=== PATIENT | male | born 1975 | race Caucasian/White ===

== ENCOUNTER 2020-11-03 11:37 | Observation (INO) | payer BC ==
[2020-11-03 12:19] LABS: #Eosinphils 0.5 thou/uL (0.0-0.7); #Lymphocytes 0.5 thou/uL (1.20-3.40); #Monocytes 1.3 thou/uL (0.11-0.59); #Neutrophils 9.2 thou/uL (1.40-6.50); %Basophils 0.4 % (0.0-1.0); %Eosinophils 4.5 % (0.0-10.0); %Lymphocytes 4.6 % (21.0-51.0); %Neutrophils 79.5 % (42.0-75.0); Hemoglobin 10.6 g/dL (14.0-18.0); Mean Corpuscular HGB CONC 33.4 g/dL (32.0-36.0); Mean Corpuscular Hemoglobin 31.6 pg (27.0-31.0); Mean Corpuscular Volume 94.6 fL (78.0-98.0); Mean Platelet Volume 7.8 fL (7.4-10.4); Platelet Count 230 thou/uL (130-400); RBC Distribution Width 14.4 % (11.5-14.5); Red Blood Cell (RBC) Count 3.35 mill/uL (4.70-6.10); White Blood Cell (WBC) Count 11.6 thou/uL (4.8-10.8)
[2020-11-03 12:40] LABS: ALT (SGPT) 7 U/L (8-55); AST (SGOT) 6 U/L (5-34); Albumin 4.2 g/dL (3.5-5.0); Alkaline Phosphatase 92 U/L (40-110); Anion Gap 18 mmol/L (10-20); BUN (Urea Nitrogen) 22 mg/dL (8.9-20.6); Bilirubin, Total 0.5 mg/dL (0.2-1.2); CK (CPK) 75 U/L (30-200); Calc. Creatinine Clearance 0 mL/min (70-130); Calcium 8.6 mg/dL (7.8-10.44); Carbon Dioxide 30 mmol/L (22-29); Chloride 96 mmol/L (98-107); Globulin 2.8 g/dL (2.4-3.5); Glucose 123 mg/dL (70-105); Potassium 4.4 mmol/L (3.5-5.1); Sodium 140 mmol/L (136-145)
[2020-11-03 12:52] LABS: PTT 33.1 sec (22.9-36.1); Prothrombin Time 13.4 sec (12.0-14.7)
[2020-11-03] MEDS ORDERED: Dextrose 5% in Water 1,000 ML IV PRN (15:33)
[2020-11-03] MEDS ORDERED: Ondansetron PF 4 MG/2 ML Vial IVP PRN (15:33)
[2020-11-03] MEDS ORDERED: Ondansetron ODT 4 MG TAB PO PRN (15:33)
[2020-11-03] MEDS ORDERED: Dextrose 50% Abboject 50 ML SYRINGE SLOW IVP PRN (15:33)
[2020-11-03] MEDS ORDERED: Bisacodyl 5 MG TAB PO PRN (15:33)
[2020-11-03] MEDS ORDERED: Calcium Carbonate 500 MG ChewTAB PO PRN (15:33)
[2020-11-03 17:33] VITALS: BMI 30.8
[2020-11-03] MEDS ORDERED: HumaLOG 300 UNITS/3 ML VIAL SC PRN (18:18)
[2020-11-04 04:46] LABS: #Eosinphils 0.5 thou/uL (0.0-0.7); #Lymphocytes 0.8 thou/uL (1.20-3.40); #Neutrophils 5.8 thou/uL (1.40-6.50); %Basophils 0.4 % (0.0-1.0); %Eosinophils 6.1 % (0.0-10.0); %Lymphocytes 9.8 % (21.0-51.0); %Monocytes 12.5 % (0.0-10.0); %Neutrophils 71.2 % (42.0-75.0); Hemoglobin 9.9 g/dL (14.0-18.0); Mean Corpuscular HGB CONC 32.7 g/dL (32.0-36.0); Mean Corpuscular Hemoglobin 31.1 pg (27.0-31.0); Mean Corpuscular Volume 95.3 fL (78.0-98.0); Mean Platelet Volume 7.8 fL (7.4-10.4); Platelet Count 221 thou/uL (130-400); RBC Distribution Width 14.7 % (11.5-14.5); Red Blood Cell (RBC) Count 3.16 mill/uL (4.70-6.10); White Blood Cell (WBC) Count 8.2 thou/uL (4.8-10.8)
[2020-11-04 05:07] LABS: ALT (SGPT) Less than 7 U/L (8-55); AST (SGOT) 5 U/L (5-34); Albumin 3.7 g/dL (3.5-5.0); Alkaline Phosphatase 84 U/L (40-110); Anion Gap 19 mmol/L (10-20); BUN (Urea Nitrogen) 29 mg/dL (8.9-20.6); Bilirubin, Total 0.4 mg/dL (0.2-1.2); Calc. Creatinine Clearance 14 mL/min (70-130); Calcium 8.4 mg/dL (7.8-10.44); Carbon Dioxide 27 mmol/L (22-29); Chloride 94 mmol/L (98-107); Globulin 2.8 g/dL (2.4-3.5); Glucose 222 mg/dL (70-105); Potassium 4.7 mmol/L (3.5-5.1); Protein, Total 6.5 g/dL (6.0-8.3); Sodium 135 mmol/L (136-145)
[2020-11-04] MEDS: HumaLOG 300 UNITS/3 ML VIAL SC PRN ×2 (05:52→11:02)
[2020-11-04] MEDS ORDERED: Carvedilol 25 MG TAB PO SCH (08:00)
[2020-11-04] MEDS ORDERED: Ascorbic Acid 500 mg Chewable Tablet PO SCH (09:00)
[2020-11-04] MEDS ORDERED: NIFEdipine XL 60 MG TAB PO SCH (09:00)
[2020-11-04] MEDS ORDERED: Famotidine 20 MG TAB PO SCH (09:00)
[2020-11-04] MEDS ORDERED: Zinc Sulfate 220 MG CAP PO SCH (09:00)
[2020-11-04] MEDS ORDERED: hydrALAZINE 25 MG TAB PO SCH (09:00)
[2020-11-04] MEDS: Sevelamer Carbonate 800 MG TAB PO SCH ×2 (11:03→12:32)
[2020-11-04 11:45] VITALS: TEMP 98.2
[2020-11-04 12:37] VITALS: BP 152/98
[2020-11-04] MEDS ORDERED: Atorvastatin Calcium 40 MG TAB PO SCH (21:00)
[2020-11-04] MEDS ORDERED: Lantus 1000 UNITS/10 ML VIAL SC SCH (21:00)
[2020-11-05] MEDS ORDERED: levETIRAcetam 500 MG TAB PO SCH (12:00)
== END 2020-11-04 13:59 | disposition home or self-care (01) ==
LOC: ERS 11:37 → 2SE 14:49
PROVIDERS: ADMIT Family Medicine; ATTEND Family Medicine
DX: I62.01 Nontraumatic acute subdural hemorrhage (principal); I62.03 Nontraumatic chronic subdural hemorrhage; G93.5 Compression of brain; G93.89 Other specified disorders of brain; I12.0 Hypertensive chronic kidney disease with stage 5 chronic kidney disease or end stage renal disease; E10.22 Type 1 diabetes mellitus with diabetic chronic kidney disease; N18.6 End stage renal disease; E10.21 Type 1 diabetes mellitus with diabetic nephropathy; E78.5 Hyperlipidemia, unspecified; Z99.2 Dependence on renal dialysis; Z95.1 Presence of aortocoronary bypass graft; Z79.899 Other long term (current) drug therapy; Z88.8 Allergy status to other drugs, medicaments and biological substances; Z91.048 Other nonmedicinal substance allergy status
CPT/HCPCS: 36415; 36416; 70450; 71045; 80053; 82550; 83605; 84484; 85025; 85610; 85730; 93005; G0378; J1815

== ENCOUNTER 2021-03-07 16:11 | Outpatient (CLI) | payer MEDICARE, BC ==
[2021-03-08 00:58] LABS: SARS-CoV-2 PCR by NAA Not Detected (NotDetected)
== END 2021-03-07 16:12 | disposition home or self-care (01) ==
LOC: LABBT 16:11
PROVIDERS: ATTEND Ophthalmology Retina Specialist
DX: Z01.812 Encounter for preprocedural laboratory examination (principal); H43.11 Vitreous hemorrhage, right eye; H35.371 Puckering of macula, right eye; Z20.822 Contact with and (suspected) exposure to COVID-19
CPT/HCPCS: U0003; U0005

== ENCOUNTER 2021-03-10 09:43 | Day surgery (SDC) | payer MEDICARE, BC ==
[~2021-03-10 09:43] MED LIST: EPINEPHrine 0.3 MG, Dextrose 50% 3 ML in Ophthalmic Irrigation Solution 500 ML IRR SCH; Fentanyl 100 MCG/2 ML VIAL ONE; Midazolam HCl 2 mg/2 ml Vial ONE
[2021-03-10] MEDS ORDERED: Cyclopentolate 1% Opth Drop 2 ML BOT ONE (10:04)
[2021-03-10] MEDS ORDERED: Phenylephrine 2.5% Ophth Soln 5 ML BOT ONE (10:04)
[2021-03-10] MEDS ORDERED: Lidocaine 4% PF 5 ML AMP ONE (10:44)
[2021-03-10] MEDS ORDERED: CEFAZOLIN 1 GM VIAL ONE (10:44)
[2021-03-10] MEDS ORDERED: Dextrose 50% Abboject 50 ML SYRINGE ONE (10:44)
[2021-03-10] MEDS ORDERED: Triamcinolone 40 MG/ML VIAL ONE (10:44)
[2021-03-10] MEDS ORDERED: Lidocaine 1% PF 5 ML VIAL ONE (10:44)
[2021-03-10] MEDS ORDERED: Bupivacaine PF 0.75% SDV 10 ML ONE (10:44)
[2021-03-10] MEDS ORDERED: Maxitrol 0.1% Opth Oint 3.5 GM TUBE ONE (10:44)
[2021-03-10] MEDS ORDERED: PROPOFOL 200 MG/20 ML VIAL ONE (10:44)
== END 2021-03-10 13:15 | disposition home or self-care (01) ==
LOC: SDC 09:43
PROVIDERS: ATTEND Ophthalmology Retina Specialist
PROC: 08T43ZZ Resection of Right Vitreous, Percutaneous Approach (ICD-10-PCS; principal; 2021-03-10)
PROC: 08QE3ZZ Repair Right Retina, Percutaneous Approach (ICD-10-PCS; 2021-03-10)
DX: E11.3591 Type 2 diabetes mellitus with proliferative diabetic retinopathy without macular edema, right eye (principal); H43.11 Vitreous hemorrhage, right eye; Z79.4 Long term (current) use of insulin; Z79.899 Other long term (current) drug therapy; Z88.8 Allergy status to other drugs, medicaments and biological substances; Z91.048 Other nonmedicinal substance allergy status
CPT/HCPCS: 36416; J0171; J0690; J2250; J2704; J3010; J3301; J3490

== ENCOUNTER 2021-04-20 09:41 | Outpatient (CLI) | payer MEDICARE, BC ==
[2021-04-20 21:34] LABS: SARS-CoV-2 PCR by NAA Not Detected (NotDetected)
== END 2021-04-20 09:42 | disposition home or self-care (01) ==
LOC: LABBT 09:41
PROVIDERS: ATTEND Ophthalmology Retina Specialist
DX: Z01.812 Encounter for preprocedural laboratory examination (principal)
CPT/HCPCS: U0003; U0005

== ENCOUNTER 2021-04-21 05:49 | Day surgery (SDC) | payer MEDICARE, BC ==
[2021-04-20 10:59] VITALS: BMI 28.8
[2021-04-21] MEDS ORDERED: Cyclopentolate 1% Opth Drop 2 ML BOT ONE (05:58)
[2021-04-21] MEDS ORDERED: Phenylephrine 2.5% Ophth Soln 5 ML BOT ONE (05:58)
[2021-04-21] MEDS ORDERED: EPINEPHrine 0.3 MG, Dextrose 50% 3 ML in Ophthalmic Irrigation Solution 500 ML FS SCH (06:15)
[2021-04-21] MEDS ORDERED: Insulin Regular 300 UNITS/3 ML VIAL ONE (06:44)
[2021-04-21] MEDS ORDERED: PROPOFOL 20 ML ONE (07:00)
[2021-04-21] MEDS ORDERED: Lidocaine 4% PF 5 ML AMP ONE (07:15)
[2021-04-21] MEDS ORDERED: Bupivacaine PF 0.75% SDV 10 ML ONE (07:15)
[2021-04-21] MEDS ORDERED: Lidocaine 1% PF 5 ML VIAL ONE (07:15)
[2021-04-21] MEDS ORDERED: Dextrose 50% Abboject 50 ML SYRINGE ONE (07:15)
[2021-04-21] MEDS ORDERED: Maxitrol 0.1% Opth Oint 3.5 GM TUBE ONE (07:15)
[2021-04-21] MEDS ORDERED: Triamcinolone 40 MG/ML VIAL ONE (07:15)
[2021-04-21] MEDS ORDERED: CEFAZOLIN 1 GM VIAL ONE (07:15)
== END 2021-04-21 09:07 | disposition home or self-care (01) ==
LOC: SDC 05:49
PROVIDERS: ATTEND Ophthalmology Retina Specialist
PROC: 08T43ZZ Resection of Right Vitreous, Percutaneous Approach (ICD-10-PCS; principal; 2021-04-21)
DX: H43.11 Vitreous hemorrhage, right eye (principal); E11.9 Type 2 diabetes mellitus without complications; Z79.4 Long term (current) use of insulin; Z79.899 Other long term (current) drug therapy; Z88.8 Allergy status to other drugs, medicaments and biological substances; Z91.048 Other nonmedicinal substance allergy status; Z95.1 Presence of aortocoronary bypass graft
CPT/HCPCS: 36416; J0171; J0690; J1815; J2704; J3301; J3490

== ENCOUNTER 2021-12-09 18:18 | Emergency (ER) | payer MEDICARE, BC ==
[2021-12-09 18:44] LABS: #Eosinphils 0.6 thou/uL (0.0-0.7); #Lymphocytes 0.9 thou/uL (1.20-3.40); #Monocytes 0.9 thou/uL (0.11-0.59); #Neutrophils 4.2 thou/uL (1.40-6.50); %Basophils 0.5 % (0.0-1.0); %Eosinophils 9.4 % (0.0-10.0); %Monocytes 13.7 % (0.0-10.0); %Neutrophils 63.3 % (42.0-75.0); Hemoglobin 9.2 g/dL (14.0-18.0); Mean Corpuscular HGB CONC 32.7 g/dL (32.0-36.0); Mean Corpuscular Hemoglobin 32.1 pg (27.0-31.0); Mean Corpuscular Volume 98.2 fL (78.0-98.0); Mean Platelet Volume 8.2 fL (7.4-10.4); Platelet Count 163 thou/uL (130-400); RBC Distribution Width 16.5 % (11.5-14.5); Red Blood Cell (RBC) Count 2.87 mill/uL (4.70-6.10); White Blood Cell (WBC) Count 6.7 thou/uL (4.8-10.8)
[2021-12-09 18:53] LABS: INR-International Normal Ratio 1.1; Prothrombin Time 14.1 sec (12.0-14.7)
[2021-12-09 18:54] LABS: PTT 35.1 sec (22.9-36.1)
[2021-12-09 19:06] LABS: ALT (SGPT) 7 U/L (8-55); AST (SGOT) 11 U/L (5-34); Albumin 3.8 g/dL (3.5-5.0); Alkaline Phosphatase 76 U/L (40-110); Anion Gap 23 mmol/L (10-20); BUN (Urea Nitrogen) 42 mg/dL (8.9-20.6); Bilirubin, Total 0.8 mg/dL (0.2-1.2); Calc. Creatinine Clearance 0 mL/min (70-130); Carbon Dioxide 22 mmol/L (22-29); Chloride 98 mmol/L (98-107); Estimated GFR 12; Globulin 2.9 g/dL (2.4-3.5); Glucose 169 mg/dL (70-105); Potassium 3.8 mmol/L (3.5-5.1); Protein, Total 6.7 g/dL (6.0-8.3); Sodium 139 mmol/L (136-145)
[2021-12-09 19:28] LABS: CKMB 4.2 ng/mL (0-6.6)
== END 2021-12-09 20:09 | disposition home or self-care (01) ==
LOC: ERS 18:18
DX: I95.3 Hypotension of hemodialysis (principal); E10.22 Type 1 diabetes mellitus with diabetic chronic kidney disease; I12.0 Hypertensive chronic kidney disease with stage 5 chronic kidney disease or end stage renal disease; N18.6 End stage renal disease; E78.5 Hyperlipidemia, unspecified; Z79.899 Other long term (current) drug therapy
CPT/HCPCS: 36415; 71045; 80053; 82553; 83880; 84484; 85025; 85610; 85730; 93005